=== PATIENT | female | born 1945 | race Caucasian/White ===

== ENCOUNTER 2022-03-14 07:39 | Outpatient (CLI) | payer MEDICARE | END 2022-03-14 07:40 | disposition home or self-care (01) | LOC: CSHCT 07:39 | PROVIDERS: ATTEND Physician Assistant Medical | DX: K92.1 Melena (principal); R53.83 Other fatigue; K57.30 Diverticulosis of large intestine without perforation or abscess without bleeding | CPT/HCPCS: 74177; 82565 ==